=== PATIENT | male | born 1950 | race Caucasian/White ===

== ENCOUNTER → 2017-03-21 | Outpatient (CLI) | payer OTHER ==
[~2017-03-21] MED LIST: NAPROSYN500 MG PO; OXYCODON-ACETA1 EAC1 PO; PERCOCET 5-3251 EACH PO; TYLENOL PM PO
== END ==
LOC: CAT 14:43
DX: M19.071 Primary osteoarthritis, right ankle and foot (principal); M77.31 Calcaneal spur, right foot